=== PATIENT | male | born 1950 | race Caucasian/White ===

== ENCOUNTER → 2018-02-07 | Outpatient (CLI) | payer MEDICARE, OTHER | LOC: ZCOL.LAB 13:03 | DX: I48.91 Unspecified atrial fibrillation (principal) ==

== ENCOUNTER 2018-03-06 07:21 | Day surgery (SDC) | payer MEDICARE, OTHER ==
[~2018-03-06] VITALS: Ht 182.9 cm; Wt 102.9 kg
[2018-03-06 08:04] LABS: HEMOGLOBIN 14.7 g/dl (13.5-18.0); MEAN CELL VOLUME 86 fl (80.0-100.0); MEAN CORPUSCULAR HEMOGLOBIN 30 pg (27.0-31.0); MEAN CORPUSCULAR HGB CONC 35 g/dl (33.0-37.0); MEAN PLATELET VOLUME 9.7 fl (7.4-10.4); PLATELET COUNT 176 K/mm3 (130-400); REDCELL DISTRIBUTION WIDTH-CV 12.5 % (11.5-14.5)
[2018-03-06 08:10] LABS: INR 1.3 (0.8-3.0); PROTHROMBIN TIME 14.4 SECONDS (9.7-12.8)
[2018-03-06 08:13] LABS: CALCIUM 9.5 mg/dL (8.4-10.2); CREATININE, serum 0.93 mg/dL (0.66-1.25); POTASSIUM 4.3 mmol/L (3.4-5.0)
[2018-03-06] MEDS ORDERED: TOPROL XL 25MG25 MG PO (08:25)
[2018-03-06] MEDS ORDERED: XARELTO20 MG PO (08:27)
[2018-03-06] MEDS ORDERED: VISION VITAMINS1 TA1 PO (08:28)
[2018-03-06] MEDS ORDERED: MULTI VITAMINS1 TAB PO (08:29)
[2018-03-06] MEDS ORDERED: OMEGA-3 1000 MG1 CAP PO (08:29)
[2018-03-06 08:36] VITALS: BP 142/88; PULSE 69; TEMP 98.6
[2018-03-06 09:35] VITALS: BP 100/86; PULSE 68
[2018-03-06 09:45] VITALS: BP 106/80; PULSE 80
[2018-03-06 10:00] VITALS: BP 108/94; PULSE 81
[2018-03-06 10:15] VITALS: BP 116/76; PULSE 76
[2018-03-06 10:35] VITALS: BP 107/75; PULSE 77
== END 2018-03-06 10:45 | disposition home or self-care (01) ==
LOC: COL.CAR 07:21
PROVIDERS: Internal Medicine Cardiovascular Disease
DX: I48.91 Unspecified atrial fibrillation (principal); Z96.652 Presence of left artificial knee joint; Z86.010 Personal history of colon polyps; Z79.84 Long term (current) use of oral hypoglycemic drugs; Z79.01 Long term (current) use of anticoagulants; Z80.8 Family history of malignant neoplasm of other organs or systems; Z82.49 Family history of ischemic heart disease and other diseases of the circulatory system
CPT/HCPCS: J2704; J7120

== ENCOUNTER → 2020-01-07 | Outpatient (CLI) | payer MEDICARE, OTHER ==
[~2020-01-07] MED LIST: MULTI VITAMINS1 TAB PO; OMEGA-3 1000 MG1 CAP PO; TOPROL XL 25MG25 MG PO; VISION VITAMINS1 TA1 PO; XARELTO20 MG PO
== END ==
LOC: COL.RAD 11:27
DX: R59.0 Localized enlarged lymph nodes (principal)
CPT/HCPCS: Q9967

== ENCOUNTER → 2020-03-31 | Outpatient (CLI) | payer MEDICARE, OTHER | LOC: COL.VAS 13:59 | DX: Z51.11 Encounter for antineoplastic chemotherapy (principal); C83.91 Non-follicular (diffuse) lymphoma, unspecified, lymph nodes of head, face, and neck; I08.8 Other rheumatic multiple valve diseases ==

== ENCOUNTER 2020-04-08 07:02 | Day surgery (SDC) | payer MEDICARE, OTHER ==
[~2020-04-08] VITALS: Ht 182.9 cm; Wt 98.8 kg
[2020-04-08] MEDS ORDERED: [UNRECOGNIZED DRUG - CODE] TOP (07:36)
[2020-04-08] MEDS ORDERED: ZYLOPRIM 300MG300 MG PO (07:37)
[2020-04-08] MEDS ORDERED: ONE-A-DAY ESSE1 EACH PO (07:38)
[2020-04-08] MEDS ORDERED: PRESERVISION1 SGL PO (07:38)
[2020-04-08] MEDS ORDERED: ELIQUIS 5MG PO (07:39)
[2020-04-08] MEDS ORDERED: VIAGRA100 M1 PO (07:40)
[2020-04-08 07:57] VITALS: BP 116/84; PULSE 81; TEMP 98.6
[2020-04-08 07:57] LABS: HEMATOCRIT 42.7 % (42.0-52.0); HEMOGLOBIN 14.5 g/dl (13.5-18.0); MEAN CELL VOLUME 88 fl (80.0-100.0); MEAN CORPUSCULAR HEMOGLOBIN 30 pg (27.0-31.0); MEAN CORPUSCULAR HGB CONC 34 g/dl (33.0-37.0); MEAN PLATELET VOLUME 9.6 fl (7.4-10.4); PLATELET COUNT 156 K/mm3 (130-400); RED BLOOD COUNT 4.86 M/mm3 (4.20-5.60); REDCELL DISTRIBUTION WIDTH-CV 12.3 % (11.5-14.5)
[2020-04-08 08:00] LABS: INR 1.1 (0.8-3.0); PROTHROMBIN TIME 12.5 SECONDS (9.7-12.8)
[2020-04-08 08:03] LABS: PARTIAL THROMBOPLASTIN TIME 38.2 SECONDS (26.0-37.0)
[2020-04-08 08:15] LABS: CALCIUM 9.4 mg/dL (8.4-10.2); CREATININE, serum 0.91 (0.66-1.25); MAGNESIUM 2.1 mg/dL (1.6-2.3); POTASSIUM 4.5 mmol/L (3.4-5.0)
[2020-04-08 08:45] LABS: THYROID STIMULATING HORMONE 6.23 uIU/mL (0.465-4.680)
[2020-04-08 09:30] VITALS: BP 100/75; PULSE 72
[2020-04-08] MEDS ORDERED: TAMBOCOR 1100 MG/TAB PO (09:31)
[2020-04-08 09:45] VITALS: BP 106/71; PULSE 69
[2020-04-08] MEDS ORDERED: TOPROL XL 25MG25 MG PO (09:59)
[2020-04-08 10:00] VITALS: BP 108/94; PULSE 76
[2020-04-08 10:15] VITALS: BP 116/70; PULSE 78
--- NOTE | 2020-04-08 10:39 | NUR ---
DC instructions reviewed and pt expresses questions. He tolerates PO without issue following procedure. He is ambulatory with steady gait. IV is DC'd with catheter intact, bleeding controlled at site. Pt is assisted out by wheelchair to 's car.
== END 2020-04-08 10:43 | disposition home or self-care (01) ==
LOC: COL.CAR 07:02
PROVIDERS: Internal Medicine Cardiovascular Disease
DX: I48.92 Unspecified atrial flutter (principal); I34.0 Nonrheumatic mitral (valve) insufficiency; I48.0 Paroxysmal atrial fibrillation; Z96.652 Presence of left artificial knee joint; G47.33 Obstructive sleep apnea (adult) (pediatric); M19.90 Unspecified osteoarthritis, unspecified site
CPT/HCPCS: J2704; J7120

== ENCOUNTER 2021-07-19 08:36 | Day surgery (SDC) | payer MEDICARE, OTHER ==
[~2021-07-19] VITALS: Ht 182.9 cm; Wt 104.6 kg
[~2021-07-19 08:36] MED LIST changes: +ELIQUIS 5MG PO; +ONE-A-DAY ESSE1 EACH PO; +PRESERVISION1 SGL PO; +TAMBOCOR 1100 MG/TAB PO; +VIAGRA100 M1 PO; +ZYLOPRIM 300MG300 MG PO; +[UNRECOGNIZED DRUG - CODE] TOP
[2021-07-19] MEDS ORDERED: DEPO-TESTOS100 MG/ML IM (08:50)
[2021-07-19] MEDS ORDERED: ASPIRIN E.C. 8181 MG PO (08:51)
[2021-07-19 09:00] VITALS: BP 123/84; PULSE 84; TEMP 98.4
[2021-07-19 10:15] VITALS: BP 99/76; PULSE 81; TEMP 97.1
--- NOTE | 2021-07-19 10:15 | NUR ---
Patient arrives to [facility] via cart, accompanied by Endo RN. Patient is alert and oriented. He ambulates with steady gait to the chair in his room. MOnitoring is applied -VSS on room air. His is at the bedside. PIV to TKO. He denies pain or nausea. He is offered and receives pepsi and toast.
[2021-07-19 10:30] VITALS: BP 115/82; PULSE 72
--- NOTE | 2021-07-19 10:30 | NUR ---
Patient is resting comfortably. He denies pain, nausea, or need. VSS on room air. Tolerating PO well.
[2021-07-19 10:45] VITALS: BP 106/83; PULSE 71
--- NOTE | 2021-07-19 10:45 | NUR ---
VSS on room air. Denies pain, nausea, or need.
--- NOTE | 2021-07-19 10:56 | NUR ---
Port-a-cath is deaccessed per protocol. No complications noted.
--- NOTE | 2021-07-19 11:15 | NUR ---
Patient has met discharge criteria. Discharge instructions are discussed. He denies any questions and verbalizes understanding. He changes to his clothing independently. He is escorted to the exit via wheelchair by staff and discharged to the care of his , who drives him home in a private vehicle at 1115.
== END 2021-07-19 11:15 | disposition home or self-care (01) ==
LOC: SDCO 08:36
DX: Z12.11 Encounter for screening for malignant neoplasm of colon (principal); D12.2 Benign neoplasm of ascending colon; K57.30 Diverticulosis of large intestine without perforation or abscess without bleeding; K64.0 First degree hemorrhoids; G47.33 Obstructive sleep apnea (adult) (pediatric); Z85.72 Personal history of non-Hodgkin lymphomas; Z79.82 Long term (current) use of aspirin
CPT/HCPCS: J1644; J2704; J7030

== ENCOUNTER 2022-02-11 17:17 | Observation (INO) | payer MEDICARE, OTHER ==
[~2022-02-11] VITALS: Ht 182.9 cm; Wt 104.0 kg
[~2022-02-11 17:17] MED LIST changes: +ASPIRIN E.C. 8181 MG PO; +DEPO-TESTOS100 MG/ML IM
[2022-02-11 17:57] LABS: PROTHROMBIN TIME 11.4 SECONDS (9.7-12.8)
[2022-02-11 17:59] LABS: PARTIAL THROMBOPLASTIN TIME 34.1 SECONDS (26.0-37.0)
[2022-02-11 18:01] LABS: ALANINE AMINOTRANSFERASE 25 U/L (0-55); ALBUMIN 3.8 gm/dL (3.4-4.8); ALKALINE PHOSPHATASE 108 U/L (40-150); ANION GAP 10 mmol/L (7-16); AST,SGOT 24 U/L (5-34); BILIRUBIN,TOTAL 0.6 mg/dL (0.2-1.2); BLOOD UREA NITROGEN 15 mg/dL (8-26); CALCIUM 9.1 mg/dL (8.4-10.2); CARBON DIOXIDE 25 mmol/L (23-31); CHLORIDE 106 mmol/L (98-107); CREATININE, serum 0.97 mg/dL (0.72-1.25); GLUCOSE 124 mg/dL (70-99); POTASSIUM 3.8 mmol/L (3.5-4.5); SODIUM 141 mmol/L (136-145); TOTAL PROTEIN 7.5 gm/dL (6.2-8.1)
[2022-02-11 18:08] LABS: TROPONIN-I < 0.010 ng/mL (0.00-0.033)
[2022-02-11 18:12] LABS: HEMATOCRIT 38.1 % (42.0-52.0); HEMOGLOBIN 13.7 g/dl (13.5-18.0); MEAN CELL VOLUME 91 fl (80.0-100.0); MEAN CORPUSCULAR HEMOGLOBIN 33 pg (27-31); MEAN CORPUSCULAR HGB CONC 36 g/dl (33.0-37.0); MEAN PLATELET VOLUME 9.2 fl (7.4-10.4); PLATELET COUNT 104 K/mm3 (130-400); RED BLOOD COUNT 4.21 M/mm3 (4.20-5.60); REDCELL DISTRIBUTION WIDTH-CV 13.5 % (11.5-14.5)
[2022-02-11 18:46] LABS: BAND 1 % (0-10); EOSINOPHIL 1 % (0-4); LYMPHOCYTE 45 % (20.0-51.0); NEUTROPHILS 32 % (42.0-75.2); PLATELET ESTIMATE DECREASED (NORMAL)
[2022-02-11] MEDS ORDERED: TOPROL XL 25MG25 MG PO (19:19)
[2022-02-11] MEDS ORDERED: SENOKOT8.6 MG PO (19:22)
[2022-02-11] MEDS ORDERED: THE MEDICINE SH1 T18 PO (19:22)
[2022-02-11 21:49] VITALS: BP 153/81; PULSE 83; TEMP 98.5
[2022-02-12] VITALS (10 sets, daily range): BP systolic 130–165; BP diastolic 65–85; PULSE 76–95; TEMP 98.1–98.7
[2022-02-12 03:46] LABS: TSH w REFLEX 3.324 uIU/mL (0.350-4.940)
--- NOTE | 2022-02-12 04:00 | NUR ---
PT ARRIVED TO THE MEDICAL FLOOR AROUND 2145HRS TO ROOM 316. PT A&O X 4; VSS FOR PT; O2 RA. PT COMPLAINED OF CHEST PAIN, HE RATED A 3 TO 4. PT GIVEN MORPHINE PER REQUEST. PT FELT THE MORPHINE WAS EFFECTIVE. PT DENIED PALPITATIONS, SOB, N,V,D OR DIZZINESS. ADMISSIONS ASSESSMENT AND MED REC COMPLETE. PT ORIENTED TO ROOM AND HOSPITAL POLICY. POC DISCUSSED WITH PT. PT VERBALIZED UNDERSTANDING. ALL QUESTIONS AND CONCERNS ADDRESSED. PT EXPRESSED NO ADDITIONAL NEEDS AT THIS TIME. CALL LIGHT WITHIN REACH.
[2022-02-12 07:15] LABS: CHOLESTEROL RISK RATIO 4.6
--- NOTE | 2022-02-12 08:18 | NUR ---
PT ALERT AND ORIENTED LAYING IN BED WATCHING TV. PT DENIES PAIN. PT AWAITING FOR ECHO AND STRESS TEST. CALL LIGHT WITHIN REACH. NO FURTHER NEEDS IDENTIFIED.
[2022-02-12] MEDS ORDERED: LIPITOR 40MG TA40 MG PO (11:09)
--- NOTE | 2022-02-12 12:40 | NUR ---
Patient thanked Banquet Server On Call for looking in on him and offering prayer and God's blessings. Banquet Server On Call will follow up visit.
[2022-02-12] MEDS ORDERED: PRINIVIL5 MG PO (13:48)
--- NOTE | 2022-02-12 16:40 | NUR ---
PT DISCHARGE INSTRUCTION GIVEN. PT VERBALIZES UNDERSTANDING. PT ESCORTED OUT BY WHEELCHAIR ACCOMPANIED BY SPOUSE AND VIA [facility] STAFF. IV DISCONTINUED, NO COMPLICATIONS WERE OBSERVED. NO FURTHER NEEDS IDENTIFIED.
== END 2022-02-12 16:04 | disposition home or self-care (01) ==
LOC: COL.ER 17:17 → MEDICAL 18:39
PROVIDERS: Emergency Medicine; Nurse Practitioner Family; ADMIT Internal Medicine
DX: R07.89 Other chest pain (principal); I48.91 Unspecified atrial fibrillation; I11.9 Hypertensive heart disease without heart failure; D69.6 Thrombocytopenia, unspecified; I35.1 Nonrheumatic aortic (valve) insufficiency; Z85.72 Personal history of non-Hodgkin lymphomas; Z79.82 Long term (current) use of aspirin
CPT/HCPCS: A9500; G0378; J1650; J2270; J2785; J7030; Q9967